=== PATIENT | female | born 1985 | race Caucasian/White ===

== ENCOUNTER 2017-07-18 22:30 | Emergency (ER) | payer OTHER ==
[~2017-07-18] VITALS: Ht 160 cm; Wt 65.5 kg
[~2017-07-18 22:30] MED LIST: ACET-1256 PO; BACL10TA PO; voltaren gel TOP
[2017-07-18 22:32] VITALS: BP 105/71; TEMP 36.7; Ht 160 cm; Wt 65.5 kg
--- NOTE | 2017-07-18 23:00 | EMERGENCY ROOM VISIT NOTE ---
ED Visit Note First contact with patient: 22:45 CHIEF COMPLAINT: "I think I have a UTI" HISTORY OF PRESENT ILLNESS: This 32-year-old female patient presents to the emergency department, ambulatory, complaining of hematuria which began today. The patient states that the past 2-3 days, she has been experiencing burning with urination, frequency, incomplete emptying of her bladder when she urinates. She states few days ago, she did notice some cloudy urine and chills. She states the cloudiness and chills seem to improve, however today she has been experiencing worsening burning, and increased frequency with urination. She does report seeing a small amount of blood in her urine today. Patient states she does not have a history of urinary tract infections. She denies any abdominal pain or flank pain. She denies any history of kidney stones. The patient's last menstrual period was 3 weeks ago, and she is sexually active. She does not take control. REVIEW OF SYSTEMS: A 10 system review of systems was performed with positives and pertinent negatives listed in the history of present illness. All other systems were reviewed and are negative. ALLERGIES: Carbamazepine MEDICATIONS: Synthroid, indomethacin, lamotrigine, gabapentin, magnesium, multivitamin PMH: Hypothyroidism SOCIAL HISTORY: The patient lives locally with family. She denies drug, alcohol , tobacco use. PHYSICAL EXAM: VITALS: Vitals are noted on the nurse's note and reviewed by myself. Vital signs stable. GENERAL: This is a 32-year-old female, in no acute distress, nondiaphoretic, well-developed well-nourished. SKIN: The skin was without rashes, erythema, edema, or bruising. There is no tenting of the skin. Capillary reflex less than 2 seconds. HEAD: Normocephalic atraumatic. EARS: External auditory canals clear, tympanic membranes pearly portillo without erythema or effusion bilaterally. EYES: Pupils equal round and reactive to light and accommodation. Conjunctivae without injection, sclerae without icterus. Extraocular movements intact. NOSE: Patent, turbinates without inflammation or discharge. No sinus tenderness. MOUTH: Mucous membranes moist. Tonsils are not enlarged. Pharynx without erythema or exudate. Uvula midline. Airway patent. Tongue does not deviate. NECK: Supple without nuchal rigidity. No lymphadenopathy. No thyromegaly. Cervical spine is nontender. No JVD. HEART: Regular rate and rhythm without murmurs gallops or rubs. LUNGS: Clear to auscultation bilaterally without wheezes, rales or rhonchi. No dullness to percussion. No retractions or accessory muscle use. ABDOMEN: Positive bowel sounds x 4. Normal tympanic percussion. Mild tenderness suprapubically. The abdomen was otherwise soft, nontender, without masses or organomegaly. Toro sign negative. No guarding or rebound tenderness. MUSCULOSKELETAL: No muscle atrophy, erythema, or edema noted. Full range of motion without joint tenderness in all extremities. No tenderness to palpation. Normal gait. Strength 5/5 throughout. NEURO: Patient was alert and oriented to person place and time. Normal sensation to light and sharp touch. Deep tendon reflexes 2+ throughout. No focal neurological deficits. EMERGENCY DEPARTMENT COURSE: The patient was seen and evaluated as above. Her symptoms are consistent with UTI. UA was positive for leukocytes and blood. Urine test was negative. She will be started on antibiotics with culture pending. The patient was provided with a home pack for antibiotics with prescription for the pharmacy. She was encouraged to follow-up with her PCP or return to the ED for any worsening symptoms. Discharge instructions reviewed. The patient was discharged home in good condition. I attest that I have personally reviewed the patient's current medication list. Patient was found to have normal blood pressure on screening and does not require follow-up. Etiologies such as renal colic, appendicitis, diverticulitis, mesenteric ischemia, aortic pathology, infections, inflammatory bowel disease, PUD, biliary pathology, UTI, , as well as others were entertained. DIAGNOSIS: dysuria The chart was completed utilizing whoactually Speech voice recognition software. Grammatical errors, random word insertions, pronoun errors, and incomplete sentences are an occasional consequence of this system due to software limitations, ambient noise, and hardware issues. Any formal questions or concerns about the content, text, or information contained within the body of this dictation should be directly addressed to the provider for clarification. Current/Historical Medications Scheduled B-Complex Vitamins (Vitamin B Complex), 1 TAB PO DAILY Gabapentin (Neurontin), 200 MG PO DAILY Indomethacin Ext Rel (Indocin Ext Rel), 150 MG PO DAILY Lamotrigine (Lamictal), 150 MG PO DAILY Levothyroxine Sodium (Synthroid), 100 MCG PO DAILY Magnesium (Magnesium 250 mg), 500 MG PO DAILY Sulfa/Trimethoprim (Bactrim Ds 800MG/160MG), 1 TAB PO BID Allergies Coded Allergies: Carbamazepine (Unverified Allergy, Unknown, rash, 07/18/17) Prednisone (Verified Allergy, Unknown, may go blind, 07/18/17) Vital Signs Date Time Temp Pulse Resp B/P (MAP) Pulse Ox O2 Delivery O2 Flow Rate FiO2 07/18/17 23:22 93 98 07/18/17 22:32 36.7 86 20 105/71 99 Room Air Medications Administered Medications (Trade) Dose Ordered Sig/Jayla Route Start Time Stop Time Status Last Admin Dose Admin Trimethoprim/ Sulfamethoxazole (Sulfameth/ Trimeth Ds 800/ 160MG Home Pack) 1 homepack UD STAT PO 07/18/17 23:05 07/18/17 23:07 DC 07/18/17 23:05 1 HOMEPACK Departure Information Impression Primary Impression: Dysuria Dispostion Home / Self-Care Condition GOOD Prescriptions Sulfa/Trimethoprim (Bactrim Ds 800MG/160MG) Tab 1 TAB PO BID for 6 Days, #12 TAB Prov: Danita Macdonald PA-C 07/18/17 Referrals Daxa Gleason M.D. (PCP) Patient Instructions ED UTI Cystitis Female, My [facility] Additional Instructions You have been treated in the Emergency Department for a Urinary Tract Infection (UTI). You have been prescribed Bactrim to be taken twice daily. This is an antibiotic. All antibiotics have the potential to cause diarrhea. Stop this medication and contact a medical provider if you were to develop any significant adverse side effects including: wheezing, shortness of breath, passing out, vomiting, or a diffuse rash. Always take antibiotics as directed and COMPLETE the ENTIRE course regardless of the improvement of your symptoms. Drink plenty of water and stay well hydrated. As with any trip to the Emergency Department, you should follow-up with your Primary Care Provider from today's visit. Return to the emergency department if your symptoms persist despite treatment plan outlined above or if the following symptoms occur: increased fevers, chills , low back pain, nausea/vomiting, or blood in your urine.
[2017-07-18] MEDS ORDERED: SEPTRA DS HOME PACK 1 EA VIAL PO STA (23:05)
[2017-07-18] MEDS ORDERED: SULF800T23 PO (23:15)
[2017-07-18 23:22] VITALS: PULSE 93; O2SAT 98
[2017-07-18] MEDS ORDERED: LAMO150T PO (23:27)
[2017-07-18] MEDS ORDERED: LEVO100T PO (23:27)
[2017-07-18] MEDS ORDERED: MAGN250T3 PO (23:29)
[2017-07-18] MEDS ORDERED: INDO75CA PO (23:29)
[2017-07-18] MEDS ORDERED: B-COTAB18 PO (23:29)
[2017-07-18] MEDS ORDERED: GABA-112 PO (23:29)
== END 2017-07-18 23:24 | disposition home or self-care (01) ==
LOC: C.EDB 22:32 → C.EDA 23:24
DX: R30.0 Dysuria (principal); E03.9 Hypothyroidism, unspecified; Z88.8 Allergy status to other drugs, medicaments and biological substances; Z79.899 Other long term (current) drug therapy

== ENCOUNTER 2017-08-13 12:37 | Emergency (ER) | payer OTHER ==
[~2017-08-13] VITALS: Ht 157.5 cm; Wt 65.3 kg
[~2017-08-13 12:37] MED LIST changes: -ACET-1256 PO; +B-COTAB18 PO; -BACL10TA PO; +GABA-112 PO; +INDO75CA PO; +LAMO150T PO; +LEVO100T PO; +MAGN250T3 PO; -voltaren gel TOP
[2017-08-13 13:10] VITALS: TEMP 36.9; Ht 157.5 cm; Wt 65.3 kg
[2017-08-13] MEDS ORDERED: RANI150T85 PO (13:31)
[2017-08-13] MEDS ORDERED: LAMO200T35 PO (13:31)
[2017-08-13] MEDS ORDERED: BACL10TA PO (13:31)
--- NOTE | 2017-08-13 14:11 | DIAGNOSTIC IMAGING REPORT ---
HEAD CT NONCONTRAST CT DOSE: 537.48 mGy.cm HISTORY: head injury TECHNIQUE: Multiaxial CT images of the head were performed without the use of intravenous contrast. Automated exposure control was utilized for this study. A dose lowering technique was utilized adhering to the principles of ALARA. Comparison: Temporal bone CT 04/05/2016. Findings: The paranasal sinuses and mastoid air cells are clear. The calvarium and skull base are intact. The ventricles and sulci are within normal limits. There is no mass, hematoma, midline shift, or acute infarct. Impression: No acute intracranial abnormality. Electronically signed by: Martín Shelton M.D. 08/13/2017 2:09 PM Dictated Date/Time: 08/13/2017 2:01 PM
[2017-08-13 14:53] VITALS: BP 107/68; PULSE 68; O2SAT 100
--- NOTE | 2017-08-14 07:36 | EMERGENCY ROOM VISIT NOTE ---
ED Visit Note First contact with patient: 13:20 Chief Complaint: Head injury. History of Present Illness: Ms. Franco is a 32-year-old female who ambulates into the ED accompanied by her complaining of a possible head injury. Historically patient reports she had a significant head injury 3 years ago and she is currently under the care of Dr. Dorado, neurology at [facility], for her ongoing posttraumatic headaches. Patient reports earlier today approximately 11 hours ago she was at home and was bending forward to get a T-shirt out of a wooden dresser and struck the mid frontal area of her head on the dresser. She reports at the time of the injury she did not have a loss of consciousness but developed midfrontal headache. Since that time it has been constant and when she awoke this morning it was more severe. She contacted her neurologist who encouraged her to come to the ED for further evaluation and care. Currently she is complaining of a burning sensation in the mid forehead area. She rates this discomfort 6/10. She also reports that she has baseline bilateral ear pain related to her previous trauma and today her pain is worse than normal and she rates her discomfort 6/10. Neither of her pain is radiating. She has not identified any aggravating factors related to her pain. She took her prescribed medications of indomethacin, gabapentin and lamotrigine this morning without relief of her discomfort. Associated with her symptoms she reports she is having dizziness, light sensitivity and feels slightly unstable when she is standing or ambulating. Additionally she reports last night at the time of the injury she did have some nausea but no vomiting but the nausea has resolved this morning. She denies visual changes, hearing changes, difficulty speaking, difficulty swallowing, difficulty coordinating body movements, neck pain, back pain, chest pain, abdominal pain, extremity weakness/numbness/tingling. Review of Systems: As noted above in history of present illness. All body systems were reviewed and found to be negative as noted above. Past Medical History: As previously noted, unspecified skin disorder, asthma, unspecified stomach disorder, and hypothyroidism Current Medications: Medications Dose Route/Sig Max Daily Dose Days Date Category Lioresal (Baclofen) 10 Mg Tab 10 Mg PO UD 08/13/17 Reported Zantac (Ranitidine HCl) 150 Mg Tab 150 Mg PO UD PRN 08/13/17 Reported Lamictal (Lamotrigine) 200 Mg Tab 200 Mg PO DAILY 08/13/17 Reported Vitamin B Complex (B-Complex Vitamins) 1 Tab Tab 1 Tab PO DAILY 07/18/17 Reported Magnesium 250 mg (Magnesium) 1 Tab Tab 500 Mg PO DAILY 07/18/17 Reported Indocin Ext Rel (Indomethacin) 75 Mg Capcr 175 Mg PO DAILY 07/18/17 Reported Neurontin (Gabapentin) 100 Mg Cap 200 Mg PO DAILY 07/18/17 Reported Synthroid (Levothyroxine Sodium) 100 Mcg Tab 100 Mcg PO DAILY 07/18/17 Reported Allergies to Medications: Prednisone, sulfa, carbamazepine. Social History: Patient is not employed; she feels safe in her home environment ; she denies tobacco and alcohol use. Physical Examination: Vital Signs: Date Time Temp Pulse Resp B/P (MAP) Pulse Ox O2 Delivery O2 Flow Rate FiO2 08/13/17 14:53 68 16 107/68 100 08/13/17 13:10 36.9 83 18 138/85 100 Room Air GENERAL: 32-year-old female in mild distress due to symptoms, nontoxic-appearing , afebrile and hemodynamically stable. NEUROLOGICAL: Awake, alert and oriented to person, place and time. Answering questions appropriately and following commands. Normal gait. Good hand eye coordination. Romberg test unsteady but negative. Pronator drift test negative. Cranial nerves II through XII grossly intact. Good short-term and long-term recall. Able to spell and count backwards. Normal rapid alternating movements of the hands. Normal heel castanon test. SKIN: Warm, dry and pink. Face: In the mid frontal area patient has a small superficial abrasion with some swelling that appears to be an early contusion. HEENT: Atraumatic and normocephalic. Skull: No bony deformity, bony crepitus, swelling or ecchymosis. No raccoons eyes or hernandez signs. No drainage from the ears of the nostril; no hemotympanum. Face: Soft tissue injury as noted above under SKIN. No other bony deformity, bony tenderness, or ecchymosis. PERRLA. EOMI without nystagmus. Sclera white and conjunctiva pink. No malocclusion. Airway patent. Speech is normal and clear. No intraoral trauma. Trachea midline. No jugular venous distention. BACK: No tenderness over the bony cervical and spine. Full range of motion of the cervical spine. THORAX: Lungs sounds are clear to auscultation and equal bilaterally with symmetrical chest wall. ABDOMEN: Flat, soft and nontender. Positive bowel sounds in all quadrants. No guarding, rigidity or organomegaly. EXTREMITIES: Moves all extremities well on command and with purpose. All distal neurovascular statuses are intact and equal bilaterally. 4/5 muscle strength in all movements of the upper and lower extremity joints. ED Course: Patient is assessed as noted above. Patient's medication list was reviewed. Patient was offered pain medication and refused. Urine : Negative. Head CT: Were reviewed by myself and read by the radiologist showing no acute intracranial abnormalities or skull fractures. Patient was educated about today's findings and instructed on her treatment plan ; she verbalized understanding and agreement with this plan. Clinical Impression: Frontal abrasion/contusion. Closed head injury. Disposition: Patient discharged home in stable condition; prior to departure she was reassessed and subjectively reported that she was pain and symptom-free. Plan: Patient was encouraged to continue her current medications as prescribed. Patient was encouraged to follow-up with her neurologist for continued care and treatment. Patient was encouraged to rest and avoid strenuous activities. Patient was educated on signs of worsening head injury. Patient was encouraged return the ED for any signs of worsening head injury or any new/concerning symptoms.
== END 2017-08-13 14:54 | disposition home or self-care (01) ==
LOC: C.EDB 12:38 → C.EDD 14:54
DX: S00.83XA Contusion of other part of head, initial encounter (principal); S00.81XA Abrasion of other part of head, initial encounter; W22.8XXA Striking against or struck by other objects, initial encounter; Z87.828 Personal history of other (healed) physical injury and trauma